=== PATIENT | female | born 1950 ===

== ENCOUNTER 2016-06-05 16:32 | Emergency (ER) | payer MEDICARE ==
--- NOTE | 2016-06-05 17:00 | ED PDOC ---
Arrival/HPI - General Chief Complaint: Female Genitourinary Time Seen by Provider: 06/05/16 16:53 Historian: Patient - History of Present Illness Narrative History of Present Illness (Text): 06/05/16 16:57 65 y.o. female whose PMHx includes hypertension and high cholesterol who comes to the ED with dysuria, suprapubic pressure and hematuria since this morning. She had mild back pain yesterday. No fever or n/v. She does take asa but no other oral anticoagulants. She has had previous UTIs with hematuria. No cp or sob. Past Medical History - Infectious Disease Hx of Infectious Diseases: None - Reproductive Menopause: Yes - Cardiac Hx Hypertension: Yes - Psychiatric Hx Substance Use: No - Anesthesia Hx Anesthesia: No Hx Anesthesia Reactions: No Hx Malignant Hyperthermia: No Family/Social History Family/Social History: No Known Family HX Smoking Status: Never Smoked Hx Alcohol Use: No Hx Substance Use: No Allergies/Home Meds Allergies/Adverse Reactions: Allergies No Known Allergies Allergy (Verified 06/05/16 16:52) Home Medications: Home Meds Medication Instructions Recorded Confirmed Ezetimibe [Zetia] 10 mg PO HS 06/05/16 06/05/16 amLODIPine [Norvasc] 10 mg PO DAILY 06/05/16 06/05/16 clonazePAM [Klonopin] 1 tab PO HS 06/05/16 06/05/16 Review of Systems - Review of Systems Constitutional: absent: Fevers Respiratory: absent: SOB Cardiovascular: absent: Chest Pain Gastrointestinal: Other (suprapubic pressure). absent: Nausea, Vomiting Genitourinary Female: Dysuria, Hematuria Musculoskeletal: Back Pain (resolved) Physical Exam Vital Signs Temp Pulse Resp BP Pulse Ox 06/05/16 16:45 98.5 F 82 19 122/70 97 Temperature: Afebrile Blood Pressure: Normal Pulse: Regular Respiratory Rate: Normal Appearance: Positive for: Well-Appearing, Non-Toxic, Comfortable Pain Distress: None Mental Status: Positive for: Alert and Oriented X 3 - Systems Exam Head: Present: Atraumatic, Tenderness Pupils: Present: PERRL Conjunctiva: Present: Normal Mouth: Present: Moist Mucous Membranes Pharnyx: Present: Normal. No: ERYTHEMA, EXUDATE Respiratory/Chest: Present: Clear to Auscultation, Good Air Exchange. No: Respiratory Distress, Accessory Muscle Use Cardiovascular: Present: Regular Rate and Rhythm, Normal S1, S2. No: Murmurs Abdomen: Present: Normal Bowel Sounds. No: Tenderness, Distention, Peritoneal Signs Back: No: CVA Tenderness Lower Extremity: Present: Normal Inspection. No: Edema Neurological: Present: GCS=15, CN II-XII Intact, Speech Normal Skin: Present: Warm, Dry, Normal Color. No: Rashes Psychiatric: Present: Alert, Oriented x 3, Normal Insight, Normal Concentration Medical Decision Making ED Course and Treatment: 06/05/16 17:01 Patient with noted history and unremarkable exam. Will check u/a. 06/05/16 17:25 Urine confirms UTI - will d/c on pyridium and oral antibiotics. - Lab Interpretations Lab Results: Lab Results 06/05/16 16:50: Urine Color Yellow, Urine Appearance Turbid, Urine pH 6.0, Ur Specific Cecil <= 1.005, Urine Protein Negative, Urine Glucose (UA) Negative, Urine Ketones Negative, Urine Blood Large H, Urine Nitrate Negative, Urine Bilirubin Negative, Urine Urobilinogen 0.2, Ur Leukocyte Esterase Large H, Urine RBC 2 - 5, Urine WBC 15 - 20, Ur Epithelial Cells 1 - 3, Urine Bacteria Trace - Medication Orders Current Medication Orders: Discontinued Medications Phenazopyridine HCl (Pyridium) 200 mg PO STAT STA Stop: 06/05/16 17:02 Disposition/Present on Arrival - Present on Arrival Any Indicators Present on Arrival: No History of DVT/PE: No History of Uncontrolled Diabetes: No Urinary Catheter: No History of Decub. Ulcer: No History Surgical Site Infection Following: None - Disposition Have Diagnosis and Disposition been Completed?: Yes Diagnosis: Urinary tract infection Disposition: HOME/ ROUTINE Disposition Time: 17:30 Patient Plan: Discharge Condition: GOOD Discharge Instructions (ExitCare): Urinary Tract Infection in Women (ED) Additional Instructions: Drink plenty of fluids. Take the medications as prescribed. Follow up with your primary care doctor. Return to the emergency department if any new concerning symptoms. Prescriptions: Nitrofurantoin Macrocrystals [Macrobid] 100 mg PO BID #14 cap Phenazopyridine HCl [Pyridium] 1 tab PO Q8H PRN #5 tablet PRN Reason: Urinary Discomt Referrals: Santosh Guerrero MD [Family Provider] - Follow up with primary
[2016-06-05 17:01] VITALS: BMI 26.3
[2016-06-05 17:12] LABS: URINE BILIRUBIN NEGATIVE (NEGATIVE); URINE BLOOD LARGE (NEGATIVE); URINE GLUCOSE (UA) NEGATIVE (NEGATIVE); URINE KETONE NEGATIVE (NEGATIVE); URINE LEUKOCYTE ESTERASE LARGE Leu/uL (NEGATIVE); URINE PROTEIN NEGATIVE mg/dL (<30 mg/dL); URINE UROBILINOGEN 0.2 E.U./dL (<1 E.U./dL)
[2016-06-05 17:14] LABS: URINE APPEARANCE TURBID (CLEAR); URINE COLOR YELLOW (YELLOW)
[2016-06-05 17:17] LABS: URINE BACTERIA TRACE (NEG); URINE WBC 15 - 20 /hpf (0-6)
[2016-06-05 17:51] VITALS: BP 121/72; PULSE 75; RESP 20; TEMP 98; O2SAT 100
== END 2016-06-05 17:51 | disposition home or self-care (01) ==
LOC: ED 16:32
DX: N39.0 Urinary tract infection, site not specified (principal); I10 Essential (primary) hypertension; E78.00 Pure hypercholesterolemia, unspecified

== ENCOUNTER 2016-09-09 06:48 | Day surgery (SDC) | payer MEDICARE, OTHER ==
[2016-09-03 11:25] VITALS: BMI 25.6
[2016-09-09] MEDS ORDERED: Propofol 10 mg/ml Inj (20 ML) ONE (08:07)
[2016-09-09] MEDS ORDERED: Sodium Chloride 0.9% 1,000 ML IV SCH (08:45)
[2016-09-09 09:56] VITALS: BP 117/67; RESP 16; TEMP 97.5; O2SAT 96
[2016-09-09 09:57] VITALS: PULSE 62
== END 2016-09-09 09:48 | disposition home or self-care (01) ==
LOC: ENDO 06:48
PROVIDERS: ATTEND Specialist
DX: K20.9 Esophagitis, unspecified (principal); K44.9 Diaphragmatic hernia without obstruction or gangrene; K25.9 Gastric ulcer, unspecified as acute or chronic, without hemorrhage or perforation; K22.2 Esophageal obstruction; E11.9 Type 2 diabetes mellitus without complications; E78.5 Hyperlipidemia, unspecified; I10 Essential (primary) hypertension; K21.9 Gastro-esophageal reflux disease without esophagitis; Z90.49 Acquired absence of other specified parts of digestive tract; K29.50 Unspecified chronic gastritis without bleeding
CPT/HCPCS: 43239; 88305; 88312; 88342; J2704; J7040 ×2

== ENCOUNTER 2018-03-23 15:37 | Outpatient (CLI) | payer MEDICARE, SELFPAY | END 2018-03-23 15:38 | disposition home or self-care (01) | LOC: RAD 15:37 | DX: Z13.820 Encounter for screening for osteoporosis (principal) ==

== ENCOUNTER 2018-05-27 10:05 | Outpatient (CLI) | payer MEDICARE, SELFPAY | END 2018-05-27 10:06 | disposition home or self-care (01) | LOC: LAB 10:05 ==

== ENCOUNTER → 2018-06-13 | Outpatient (CLI) | payer MEDICARE, SELFPAY | LOC: RAD 15:16 ==

== ENCOUNTER 2018-06-15 11:09 | Outpatient (CLI) | payer MEDICARE, SELFPAY | END 2018-06-15 11:10 | disposition home or self-care (01) | LOC: LAB 11:09 | DX: N39.0 Urinary tract infection, site not specified (principal); Z00.01 Encounter for general adult medical examination with abnormal findings; F51.01 Primary insomnia ==